=== PATIENT | male | born 1990 | race African-American/Black ===

== ENCOUNTER 2016-11-07 16:42 | Emergency (ER) | payer SELFPAY ==
[2016-11-07 16:50] VITALS: BP 124/65; PULSE 78; TEMP 98.1; BMI 24.0
--- NOTE | 2016-11-07 17:00 | EDPRACDOC ---
- General Information Chief Complaint: Ankle Pain Stated Complaint: DENTAL PAIN & RT FOOT PAIN Time Seen by Provider: 11/07/16 16:49 Information Source: Patient Mode of Arrival: Car Home Medications: Home Medications Amoxicillin/Clavulanate Potas. [Augmentin] 875 mg PO BID #20 tab 11/07/16 Prednisone [Deltasone, Orasone] 20 mg PO BID #12 tab 11/07/16 Tramadol HCl [Ultram] 50 mg PO Q6H #14 tab 11/07/16 Allergies/Adverse Reactions: Allergies Allergy/AdvReac Type Severity Reaction Status Date / Time hydrocodone Allergy Hives* Verified 05/04/16 07:34 - History of Present Illness Onset: SEVERAL WEEKS HPI: PT PRESENTS STATING HE IS HAVING LEFT ANKLE AND FOOT PAIN WHICH IS AN ONGOING ISSUE. STATES HE WAS BORN WITH [employer]UB FOOT AND THAT WITH HIS NEW JOB HE WALKS ALOT AND THIS CAUSES PAIN. PT ALSO HAS RIGHT UPPER 2ND MOLAR FRACTURE WHICH IS CAUSING PAIN Ankle Problem Location: Reports: Left Mechanism: Reports: No Injury Circumstances: Reports: Unknown Tetanus Up To Date?: No Able to Bear Weight: Limited Pain Severity: Reports: Moderate Associated Signs & Symptoms: Reports: Swelling ED Past Medical History - History Reviewed Yes Nurses notes reviewed and agree except as marked - Social Medical History Smoking Status: Light tobacco smoker (less than 5/day) EDM Review of Systems - Review of Systems ROS Negative Except as Marked: Yes All systems reviewed and were negative except as marked - Physical Exam Constitutional: Alert Oriented to: Time, Person, Place Last recorded Vital Signs: Last Vital Signs Temp 98.1 F 11/07/16 16:48 Pulse 78 11/07/16 16:48 Resp 18 11/07/16 16:48 BP 124/65 11/07/16 16:48 Pulse Ox 98 11/07/16 16:48 Oxygen Pulse Oxygen Saturation 98 O2 Device Oxygen Flow Rate Fraction of Inspired Oxygen ( FIO2) - HEENT Head: Normal ( normocephalic) Eye Exam: Normal (PERRL, EOMI, Sclera white) Oropharynx: Normal (Pharynx:Moist without exudate,Gums-no swelling) Tympanic Membrane: Normal, Other (RIGHT UPPER 2ND MOLAR FRACTURE) Nose: No Symptoms Reported (septum midline) Neck: Normal (FROM, trachea at midline) - Respiratory/Cardiovascular Respiratory: Normal - CTA (BBS clear to auscultation without adventitious sounds ) Cardiovascular: Normal (RRR without murmur, gallop or rub) - GI Auscultation: Normal (NABS) Palpation: Normal (Soft,No rebound or guarding, non distended) Tenderness: Non tender Ribera's Sign: Negative Rectal Exam: Deferred - Musculoskeletal Back: Normal (Non-Tender) Extremities: Normal (Normal tone, Pulses 2+ No cyanosis or edema, FROM) - Integumentary Skin: Normal, Warm, Dry Lymphatics: Normal (no adenopathy) - Neurologic Memory Impaired: Normal Motor Function: Normal (Normal tone, Pulses 2+ No cyanosis or edema, FROM) Cranial Nerve: Normal (CN II-X11 intact sensation, strength 5/5) Cerebellar: Normal Mood Description: Normal Perception: Normal ED Ankle Problem Phys Exam - Musculoskeletal Ankle: Swelling, Mild Tenderness Achilles Tendon: Normal Knee: Normal Lower Leg: Normal Foot: Normal Distal Function/Circulation: Normal - Differential Diagnosis Other Decision Time to Discharge: 17:01 - Departure Disposition: Home Condition: Stable Final Diagnosis: Acute periodontal abscess Left ankle pain Qualifiers: Chronicity: chronic Qualified Code(s): M25.572 - Pain in left ankle and joints of left foot; G89.29 - Other chronic pain Instructions: Arthralgia (ED), Swollen Joint (ED), Dental Abscess (ED), Dental Caries (ED) Education/Counseling Given To: Patient Education/Counseling Given Regarding: Diagnosis, Treatment, Prognosis, Follow Up Referrals: Sarkis Squires MD [Staff Physician] - [facility] [NonStaff] - One Week Prescriptions: Amoxicillin/Clavulanate Potas. [Augmentin] 875 mg PO BID #20 tab Prednisone [Deltasone, Orasone] 20 mg PO BID #12 tab Tramadol HCl [Ultram] 50 mg PO Q6H #14 tab Additional Instructions: ICE AND ELEVATION IS IMPORTANT. FOLLOW UP WITH PCP NEXT WEEK. FOLLOW UP WITH ORTHOPEDIC IF PAIN CONTINUES. RETURN TO THE ED FOR WORSENING SYMPTOMS OR CONCERNS.
== END 2016-11-07 17:15 | disposition home or self-care (01) ==
LOC: EDMC 16:42
DX: K04.7 Periapical abscess without sinus (principal); M25.572 Pain in left ankle and joints of left foot; F17.210 Nicotine dependence, cigarettes, uncomplicated
CPT/HCPCS: 99282